=== PATIENT | female | born 1940 | race Caucasian/White ===

== ENCOUNTER 2019-01-30 08:22 | Emergency (ER) | payer MEDICARE, OTHER ==
[2019-01-30 08:35] VITALS: BP 155/75
--- NOTE | 2019-01-30 08:47 | ED Physician Documentation ---
History of Present Illness - Stated complaint Stated Complaint: HEAD PAINS - Chief complaint Chief Complaint: Neuro - History obtained from History obtained from: Patient - Additonal information Additional information: Patient is a 78-year-old female presenting with right-sided sharp, shocklike, intermittent head discomfort without inciting incident or trauma. Patient denies sensation or strength changes to face including speech changes or facial droop. Patient also denies vision changes, ear pain, or rash to the face. Patient denies other areas of paresthesias, paralysis, as well as chest pain, difficulty breathing, cough, abdominal pain, nausea, vomiting, urinary changes, or stool changes. Patient reports area is especially sensitive to touch.No other improving or worsening factors noted. 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 - Past Surgical History Past Surgical History: Yes General: Cholecystectomy - Present Medications Home Medications: Ambulatory Orders Medication Instructions Recorded Confirmed Calcium Carbonate/Vitamin D3 1 each PO 01/30/19 [Calcium 250-D Tablet] Carbamazepine 200 mg PO DAILY 14 Days tablet 01/30/19 Levothyroxine [Synthroid] 75 mcg PO QDAC 01/30/19 01/30/19 Mecobalamin [B-12] 2,000 mcg PO 01/30/19 [place]-3/Dha/Epa/Fish Oil [Fish Oil 1 each PO 01/30/19 1,000 mg Softgel] Rosuvastatin Calcium 10 mg PO 01/30/19 - Allergies Allergies/Adverse Reactions: Allergies Allergy/AdvReac Type Severity Reaction Status Date / Time No Known Drug Allergies Allergy Verified 01/30/19 08:32 PD ED PE NORMAL - Vitals Vital signs reviewed: Yes - General General: Alert and oriented X 3, No acute distress, Well developed/nourished - HEENT HEENT: Atraumatic, PERRL (Gross visual acuity intact. No nystagmus.), EOMI, Moist mucous membranes, Pharynx benign - Neck Neck: Supple, no meningeal sign - Cardiac Cardiac: RRR, No murmur - Respiratory Respiratory: No respiratory distress, Clear bilaterally - Derm Derm: Normal color, Warm and dry, No rash - Extremities Extremities: No deformity, No tenderness to palpate - Neuro Neuro: Alert and oriented X 3, stain wiper 2-12 intact, No motor deficit, No sensory deficit, Normal speech - Psych Psych: Normal mood, Normal affect Results - Vitals Vitals: Vital Signs - 24 hr 01/30/19 08:30 Temperature 36.8 C Heart Rate 57 L Respiratory 16 Rate Blood Pressure 155/75 H O2 Saturation 99 Oxygen O2 Source Room air PD MEDICAL DECISION MAKING - ED course Complexity details: considered differential, d/w patient, d/w family ED course: Patient presenting with symptoms most consistent of right-sided trigeminal neuralgia. Physical exam does not reveal evidence of trauma, neurological deficit, or systemic illness. Have low suspicion for intracranial injury, stroke, thrombus, Roe's palsy, or other complication. Do not find evidence of facial, ear, or intraoral infection. Do not feel patient requires invasive testing or imaging at this time. Discussed starting of carbamazepine, as well as close follow-up with primary care physician once she returns to [place] and need for further evaluation by neurology. Also discussed other supportive cares and return precautions. Patient and voiced understanding and are comfortable with discharge plan. Departure - Departure Disposition: 01 Home, Self Care Clinical Impression: Trigeminal neuralgia of right side of face Condition: Good Instructions: ED Neuralgia Trigeminal Follow-Up: your,doctor [Other] - Within 3 Days Prescriptions: Carbamazepine 200 mg PO DAILY 14 Days tablet Comments: Please continue home medications as previously instructed. May start carbamazepine as instructed to help with trigeminal neuralgia pain. Please contact your primary care physician in next 2 to 3 days to establish follow-up as you may need increase in dose of carbamazepine, as well as referral to neurology. Return to ED sooner if experience worsening symptoms or have other concerns.
== END 2019-01-30 09:03 | disposition home or self-care (01) ==
LOC: ED 08:22
DX: G50.0 Trigeminal neuralgia (principal)
CPT/HCPCS: 99282; 99284

== ENCOUNTER 2020-02-23 11:05 | Emergency (ER) | payer MEDICARE, OTHER ==
[2020-02-23 11:37] LABS: BASOPHILS % (AUTO) 0.4 %; EOSINOPHILS % (AUTO) 0.5 %; HGB - HEMOGLOBIN 13.7 g/dL (12.0-16.0); LYMPHOCYTES # (AUTO) 1.6 10^3/uL (1.5-3.5); LYMPHOCYTES % (AUTO) 18.7 %; MEAN CORPUSCULAR HEMOGLOBIN 32.9 pg (27.0-31.0); MEAN CORPUSCULAR HGB CONC 33.5 g/dL (32.0-36.0); MEAN CORPUSCULAR VOLUME 98.3 fL (81.0-99.0); MEAN PLATELET VOLUME 9.2 fL (7.9-10.8); MONOCYTES # (AUTO) 0.7 10^3/uL (0.0-1.0); MONOCYTES % (AUTO) 8.1 %; NEUTROPHILS # (AUTO) 6.1 10^3/uL (1.5-6.6); NEUTROPHILS % (AUTO) 71.8 %; PLT - PLATELET COUNT 234 10^3/uL (130-450); RED BLOOD COUNT 4.16 10^6/uL (4.20-5.40); RED CELL DISTRIBUTION WIDTH 12.9 % (12.0-15.0); WHITE BLOOD COUNT 8.5 x10^3/uL (4.8-10.8)
--- NOTE | 2020-02-23 11:48 | ED Physician Documentation ---
History of Present Illness - Stated complaint Stated Complaint: ABD PX/FEMALE - Chief complaint Chief Complaint: Abd Pain - Additonal information Additional information: 79-year-old female presents to the emergency department with chief complaint of finding blood after using the restroom this morning. She is unsure if the blood was vaginal or from her urine but she does report that she has had some mild dysuria for 2 to 3 days. She denies fevers or flank pain. She has no history of recurrent urinary tract infections. She did have a history of a bladder prolapse and received a bladder lift surgery about 5 years ago. She also had a history of breast cancer for which she took tamoxifen for and for only 2 years. She is status post mastectomy which is completed nearly 30 years ago. She denies any history of hypertension or diabetes. She takes levothyroxine for mild hypothyroidism only. She is currently visiting [place] from [place] for the next 3 weeks. Review of Systems Constitutional: denies: Fever, Chills Nose: denies: Rhinorrhea / runny nose, Congestion Throat: denies: Dental pain / toothache, Oral lesions / sores, Sore throat Cardiac: denies: Chest pain / pressure, Palpitations, Pedal edema, Calf pain Respiratory: denies: Dyspnea, Cough, Hemoptysis, Wheezing GI: reports: Abdominal Pain, Constipation. denies: Nausea, Vomiting, Diarrhea, Hematemesis, Bloody / black stool : reports: Vaginal bleeding (? possibly), Other (entered menopause at 49 years of age). 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 : None HEENT: None Psych: Anxiety Musculoskeletal: Osteoarthritis Derm: None - Past Surgical History Past Surgical History: Yes General: Cholecystectomy /GREEN BUILDING ARCHITECT: Mastectomy - Present Medications Home Medications: Ambulatory Orders Medication Instructions Recorded Confirmed Calcium Carbonate/Vitamin D3 1 each PO 01/30/19 [Calcium 250-D Tablet] Carbamazepine 200 mg PO DAILY 14 Days tablet 01/30/19 Levothyroxine [Synthroid] 75 mcg PO QDAC 01/30/19 01/30/19 Mecobalamin [B-12] 2,000 mcg PO 01/30/19 [place]-3/Dha/Epa/Fish Oil [Fish Oil 1 each PO 01/30/19 1,000 mg Softgel] Rosuvastatin Calcium 10 mg PO 01/30/19 Cephalexin [Keflex] 500 mg PO BID #14 capsule 02/23/20 - Allergies Allergies/Adverse Reactions: Allergies Allergy/AdvReac Type Severity Reaction Status Date / Time No Known Drug Allergies Allergy Verified 01/30/19 08:32 - Social History Does the pt smoke?: No Smoking Status: Former smoker Does the pt drink ETOH?: Yes ETOH Use: Wine Does the pt have substance abuse?: No - Immunizations Immunizations are current?: Yes - POLST Patient has POLST: No PD ED PE NORMAL - General General: Alert and oriented X 3, No acute distress - Neck Neck: Supple, no meningeal sign, No adenopathy - Cardiac Cardiac: RRR, No murmur - Respiratory Respiratory: No respiratory distress, Clear bilaterally - Abdomen Abdomen: Normal bowel sounds, Non tender, Non distended ( ) - Female Female : Other (No bleeding in vaginal vault. No signs of rectal bleeding on pelvic exam) - Derm Derm: Normal color, Warm and dry, No rash - Extremities Extremities: No deformity, No tenderness to palpate, Normal ROM s pain - Neuro Neuro: Alert and oriented X 3, coffee grinder 2-12 intact, No motor deficit, No sensory deficit Results - Vitals Vitals: Vital Signs - 24 hr 02/23/20 02/23/20 11:12 11:34 Temperature 36.3 C L Heart Rate 70 70 Respiratory 16 18 Rate Blood Pressure 164/74 H 141/62 H O2 Saturation 99 98 Oxygen O2 Source Room air - Labs Labs: Laboratory Tests 02/23/20 02/23/20 02/23/20 11:30 11:30 12:15 WBC 8.5 RBC 4.16 L Hgb 13.7 Hct 40.9 MCV 98.3 MCH 32.9 H MCHC 33.5 RDW 12.9 Plt Count 234 MPV 9.2 Neut # (Auto) 6.1 Lymph # (Auto) 1.6 [place] # (Auto) 0.7 Eos # (Auto) 0.0 Baso # (Auto) 0.0 Absolute Nucleated RBC 0.00 Nucleated RBC % 0.0 Sodium 136 Potassium 3.6 Chloride 99 L Carbon Dioxide 27 Anion Gap 10.0 BUN 16 Creatinine 0.7 Estimated GFR (MDRD) 81 L Glucose 103 H Calcium 9.2 Total Bilirubin 0.8 AST 21 ALT 26 Alkaline Phosphatase 50 Total Protein 7.2 Albumin 4.5 Globulin 2.7 Albumin/Globulin Ratio 1.7 Lipase 44 Urine Color YELLOW Urine Clarity CLEAR Urine pH 5.5 Ur Specific [place] >=1.030 H Urine Protein NEGATIVE Urine Glucose (UA) NEGATIVE Urine Ketones NEGATIVE Urine Occult Blood MODERATE H Urine Nitrite NEGATIVE Urine Bilirubin NEGATIVE Urine Urobilinogen 0.2 (NORMAL) Ur Leukocyte Esterase SMALL H Urine RBC 6-10 H Urine WBC >25 H Ur Squamous Epith Cells RARE Squamous Urine Bacteria Few Ur Microscopic Review INDICATED Urine Culture Comments INDICATED PD MEDICAL DECISION MAKING - ED course Complexity details: reviewed results, considered differential, d/w patient ED course: 79-year-old female presents to the emergency department for evaluation of abdominal cramping and finding of blood on the tissue paper when she wiped this morning. She was unsure if the source of the blood was vaginal urinary or rectal. Her labs are reviewed in full. There is no leukocytosis or findings of renal insufficiency. Her urine is most consistent with acute cystitis. I will therefore recommend course of Keflex for urinary tract infection. I did do a limited pelvic exam and there was no bleeding in the vaginal vault and there was no rectal bleeding either. At this time I recommended to patient that if her symptoms do not improve or she has worsening pain despite taking the antibiotic she should return to the emergency department for advanced imaging at that time. Departure - Departure Disposition: 01 Home, Self Care Clinical Impression: Acute cystitis with hematuria Condition: Stable Record reviewed to determine appropriate education?: Yes Instructions: ED UTI Cystitis Female Prescriptions: Cephalexin [Keflex] 500 mg PO BID #14 capsule Comments: Xiomara your labs look essentially normal today with the exception of a urinary tract infection. It is not uncommon to have blood after wiping when you do have a urinary tract infection. Please fill the prescription for the Keflex and begin taking twice a day as prescribed. I would recommend that you return to the emergency department if your symptoms do not improve, you have fevers vomiting or pain high in your back. Please discuss his ER visit with your primary care doctor when you return to [place].
[2020-02-23 11:50] LABS: ALBUMIN 4.5 g/dL (3.2-5.5); ALBUMIN/GLOBULIN RATIO 1.7 (1.0-2.2); BILIRUBIN,TOTAL 0.8 mg/dL (0.2-1.0); CALCIUM 9.2 mg/dL (8.5-10.3); CREATININE 0.7 mg/dL (0.4-1.0); TOTAL PROTEIN 7.2 g/dL (6.7-8.2)
[2020-02-23 12:23] LABS: BILIRUBIN,URINE NEGATIVE (NEGATIVE); GLUCOSE, URINE (UA) NEGATIVE (NEGATIVE); KETONES,URINE (UA) NEGATIVE (NEGATIVE); LEUKOCYTE ESTERASE, URINE SMALL (NEGATIVE); NITRITE,URINE NEGATIVE (NEGATIVE); OCCULT BLOOD,URINE MODERATE (NEGATIVE); PH,URINE 5.5 PH (5.0-7.5); PROTEIN,URINE NEGATIVE (NEGATIVE); UROBILINOGEN,URINE 0.2 (NORMAL) E.U./dL (NORMAL)
[2020-02-23 12:25] LABS: CLARITY,URINE CLEAR (CLEAR)
[2020-02-23 12:35] LABS: BACTERIA,URINE Few /HPF (None Seen); SQUAMOUS EPITHELIAL CELL,UR RARE Squamous (<= Few)
[2020-02-23] MEDS ORDERED: cephALEXin 250 MG CAPSULE PO STA (12:46)
[2020-02-23 13:20] VITALS: BP 136/74
== END 2020-02-23 13:19 | disposition home or self-care (01) ==
LOC: ED 11:05
DX: N30.01 Acute cystitis with hematuria (principal); E03.9 Hypothyroidism, unspecified; Z08 Encounter for follow-up examination after completed treatment for malignant neoplasm; Z85.3 Personal history of malignant neoplasm of breast; Z87.891 Personal history of nicotine dependence
CPT/HCPCS: 36415; 80053; 81001; 83690; 85025; 87086; 99283; 99284; A9270; 81003; 87181

== ENCOUNTER 2020-03-12 08:00 | Outpatient (CLI) | payer MEDICARE, OTHER | END 2020-03-12 23:59 | disposition home or self-care (01) | LOC: LAB.S 08:00 | PROVIDERS: ATTEND Physician Assistant | DX: J02.9 Acute pharyngitis, unspecified (principal); Z20.828 Contact with and (suspected) exposure to other viral communicable diseases ==

== ENCOUNTER 2024-02-15 11:39 | Emergency (ER) | payer MEDICARE, OTHER ==
[2024-02-15 11:53] VITALS: BP 160/70; O2SAT 99
--- NOTE | 2024-02-15 12:08 | ED Physician Documentation ---
PD HPI HEENT - Stated complaint Stated Complaint: POSSIBLE FOB IN RT EAR - Chief complaint Chief Complaint: Heent - Additional information Additional information: 83-year-old female who is hard of hearing uses hearing aids took her hearing aid out last night and when she took her hearing aid out there is a missing top. She said the more she thinks about it she is worried that maybe her ear is hurting she went to urgent care but they had a 3-hour wait which is what brings her to the emergency department. 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: Mastectomy - Present Medications Home Medications: Ambulatory Orders Medication Instructions Recorded Confirmed Calcium Carbonate/Vitamin D3 1 each PO 01/30/19 [Calcium 250-D Tablet] Carbamazepine 200 mg PO DAILY 14 Days tablet 01/30/19 Levothyroxine [Synthroid] 75 mcg PO QDAC 01/30/19 01/30/19 Mecobalamin [B-12] 2,000 mcg PO 01/30/19 [place]-3/Dha/Epa/Fish Oil [Fish Oil 1 each PO 01/30/19 1,000 mg Softgel] Rosuvastatin Calcium 10 mg PO 01/30/19 cephALEXin [Keflex] 500 mg PO BID #14 capsule 02/23/20 - Allergies Allergies/Adverse Reactions: Allergies Allergy/AdvReac Type Severity Reaction Status Date / Time No Known Drug Allergies Allergy Verified 02/15/24 11:45 - Social History Does the pt smoke?: No Smoking Status: Never smoker Does the pt drink ETOH?: Yes Does the pt have substance abuse?: No - Immunizations Immunizations are current?: Yes - POLST Patient has POLST: No PD ED PE NORMAL - Vitals Vital signs reviewed: Yes - General General: Alert and oriented X 3, No acute distress, Well developed/nourished PD ED PE EXPANDED - HEENT HEENT: Ears normal Results - Vitals Vitals: Vital Signs - 24 hr 02/15/24 11:45 Temperature 36.5 C Heart Rate 68 Respiratory 16 Rate Blood Pressure 160/70 H O2 Saturation 99 Oxygen O2 Source Room air PD Medical Decision Making - ED course ED course: 83-year-old female presents emergency room for concerns of foreign body to right ear. Upon thorough examination I am not able to identify any foreign body. When I look at her hearing aids to see the piece that she is worried about missing in her ear and even more confident that there is no foreign body to her right ear. Patient is safe for discharge. Departure - Departure Disposition: 01 Home, Self Care Clinical Impression: Ear pain, right Instructions: Foreign Object Ear Nose Comments: Thank you for trusting us with your care, I have examined your ear and I am not seeing any foreign objects in their you are safe for discharge at this time follow-up with your primary care provider as needed. Forms: PCP List Discharge Date/Time: 02/15/24 11:58
== END 2024-02-15 11:58 | disposition home or self-care (01) ==
LOC: ED 11:39
DX: H92.01 Otalgia, right ear (principal)
CPT/HCPCS: 99281; 99283